=== PATIENT | female | born 1985 | race Caucasian/White ===

== ENCOUNTER 2022-07-04 16:27 | Emergency (ER) | payer OTHER, SELFPAY ==
[2022-07-04 17:14] VITALS: BP 139/91; PULSE 93; RESP 18; TEMP 37; O2SAT 100
[2022-07-04 18:53] LABS: Basophils Absolute Auto 0.1 K/mm3 (0.0-0.1); Basophils Percent Auto 0.4 % (0.2-1.2); Eosinophils Absolute Auto 0.1 K/mm3 (0-0.3); Eosinophils Percent Auto 1.1 % (0-4.4); Hematocrit 39.2 % (37.0-47.0); Hemoglobin 13.3 g/dL (12.0-15.0); Immature Granulocyte Absolute 0.04 K/mm3 (0.00-0.031); Immature Granulocyte Percent A 0.3 % (0-0.5); Lymphocytes Absolute Auto 2.41 K/mm3 (0.9-3.2); Lymphocytes Percent Auto 18.1 % (18.3-44.2); Mean Corpuscular HGB Conc 33.9 g/dl (32-36); Mean Corpuscular Hemoglobin 31.7 pg (26-34); Mean Corpuscular Volume 93.6 fl (80-100); Mean Platelet Volume 10.2 fl (7.4-10.4); Monocytes Absolute Auto 0.6 K/mm3 (0.1-0.6); Monocytes Percent Auto 4.4 % (2.6-8.5); Neutrophils Absolute Auto 10.1 K/mm3 (1.3-6.7); Neutrophils Percent Auto 75.7 % (45.5-73.1); Platelet Count Result 286 k/mm3 (150-375); Red Blood Count 4.19 M/mm3 (4.2-5.4); Red Cell Distribution Width 12.2 % (11.5-14.5); White Blood Count 13.3 K/mm3 (4.5-10.0)
[2022-07-04 18:55] LABS: Alanine Aminotransferase 24 U/L (6-35); Albumin Level 4.6 g/dL (3.5-5.1); Alkaline Phosphatase 64 U/L (38-126); Anion Gap 6 mmol/L (8-16); Aspartate Amino Transferase 24 U/L (14-36); Bilirubin,Total 0.7 mg/dL (0.2-1.3); Blood Urea Nitrogen 7 mg/dL (7-17); Calcium 8.8 mg/dL (8.4-10.2); Carbon Dioxide 26 mmol/L (22-30); Chloride 103 mmol/L (98-107); Estimated CRCL calculation 112 ml/min; Estimated Glomerular Filt Rate > 60; Glucose 89 mg/dL (65-110); Lipase 107 U/L (23-300); Potassium 3.6 mmol/L (3.4-5.0); Sodium 135 mmol/L (137-145)
--- NOTE | 2022-07-04 19:43 | PC.NURSE ---
states she is going to follow up with primary tomorrow morning for possible outpatient CT scan.
== END 2022-07-04 19:43 | disposition left against medical advice (07) ==
PROVIDERS: Emergency Provider Emergency Medicine; PCP Emergency Medicine
DX: R10.9 Unspecified abdominal pain (principal)
CPT/HCPCS: 36415; 80053; 83690; 85025; 99199

== ENCOUNTER 2024-02-26 15:04 | Outpatient (CLI) | payer OTHER, SELFPAY ==
--- NOTE | ~2024-02-26 | XR_ITS ---
EXAMINATION: XR chest 2V 02/26/2024 15:24 INDICATION: Cough PROCEDURE: 2 view chest COMPARISON: No prior studies for comparison. FINDINGS: The lungs are clear. The cardiomediastinal silhouette is within normal limits. There are no pleural effusions. There is no pneumothorax suspected. IMPRESSION: 1: NO ACUTE CARDIOPULMONARY DISEASE. Reviewed, dictated and finalized at location B.
[2024-02-26 15:49] LABS: Hematocrit 41.7 % (37.0-47.0); Hemoglobin 14.3 g/dL (12.0-15.0); Mean Corpuscular HGB Conc 34.3 g/dl (32-36); Mean Corpuscular Hemoglobin 32.1 pg (26-34); Mean Corpuscular Volume 93.5 fl (80-100); Mean Platelet Volume 9.8 fl (7.4-10.4); Platelet Count Result 287 k/mm3 (150-375); Red Blood Count 4.46 M/mm3 (4.2-5.4); Red Cell Distribution Width 12.5 % (11.5-14.5); White Blood Count 10.8 K/mm3 (4.5-10.0)
[2024-02-26 15:56] LABS: Add Urine Microscopic? YES; Appearance Urine Clear (Clear); Bacteria Urine Rare /hpf; Bilirubin Urine Negative (Negative); Blood Urine 1+ (Negative); Color Urine Yellow (Yellow); Glucose Urine UA Negative (Negative); Ketones Urine Negative (Negative); Leukocyte Esterase Ur Negative LEU/UL (Negative); Nitrate Urine Negative (Negative); Non Pathogenic Casts 0-2; Protein Urine Trace mg/dL (Negative); Specific Grav Ur 1.025 (1.001-1.035); Squamous Epithelial Cell Urine Occasional /hpf (Few); Urobilinogen Urine 0.2 mg/dL (<2.0); WBC Urine 0-5 /hpf (0-3)
[2024-02-26 16:20] LABS: Alanine Aminotransferase 39 U/L (6-35); Albumin Level 4.8 g/dL (3.5-5.1); Alkaline Phosphatase 87 U/L (38-126); Anion Gap 11 mmol/L (4-12); Aspartate Amino Transferase 46 U/L (14-36); Bilirubin,Total 1.1 mg/dL (0.2-1.3); Blood Urea Nitrogen 11 mg/dL (7-17); Calcium 9.3 mg/dL (8.4-10.2); Carbon Dioxide 23 mmol/L (22-30); Chloride 104 mmol/L (98-107); Cholesterol 230 mg/dL (0-200); Estimated Glomerular Filt Rate > 60; Glucose 98 mg/dL (65-110); HDL Direct 47 mg/dL; Potassium 3.8 mmol/L (3.4-5.0); Sodium 138 mmol/L (137-145); Triglycerides 232 mg/dL (<150)
[2024-02-26 16:24] LABS: Rheumatoid Factor < 12.0 IU/ML (<12)
[2024-02-26 16:26] LABS: Erythrocyte Sedimentation Rate 19 mm/hr (0-20)
[2024-02-26 16:26] LABS: Influenza A QL RT-PCR Negative (Negative); Influenza B QL RT-PCR Negative (Negative); RSV RNA, RT-PCR Negative (Negative); SARS-CoV-2 RNA PCR Negative (Negative)
[2024-02-26 16:31] LABS: LDL Cholesterol Direct 122 mg/dL
[2024-02-26 17:11] LABS: Free T4 Free Thyroxine 0.94 ng/mL (0.78-2.19); Vitamin D 25 Hydroxy 31.1 ng/mL
[2024-02-26 20:53] LABS: Hemoglobin A1C 5.3 % (<5.7)
== END 2024-02-26 15:05 | disposition home or self-care (01) ==
PROVIDERS: PCP Emergency Medicine; Visit Provider Emergency Medicine
DX: R05.9 Cough, unspecified (principal); R06.02 Shortness of breath; Z20.822 Contact with and (suspected) exposure to COVID-19
CPT/HCPCS: 36415; 71046; 80053; 80061; 81001; 82306; 83036; 84439; 84443; 85027; 85652; 86038; 86039; 86430; 87637

== ENCOUNTER 2024-03-18 12:57 | Outpatient (CLI) | payer OTHER, SELFPAY ==
--- NOTE | ~2024-03-18 | US_ITS ---
US axilla 03/18/2024 13:33 Indication: Arm pain Procedure: High-resolution ultrasound of the axilla bilaterally Comparison: No prior studies for comparison. Findings: Normal heterogeneous echotexture in the right axilla without discrete mass. In the left axi lla there is a superficial cyst measuring 8 x 5 x 4 mm, possibly a sebaceous cyst. No other masses ar e identified. No lymphadenopathy. Impression: 1: Superficial left axillary cyst measuring 8 mm, likely benign, possibly sebaceous cyst. Reviewed, dictated and finalized at location B. T METAL SMITH Impression: 1: Superficial left axillary cyst measuring 8 mm, likely benign, possibly sebac eous cyst.
== END 2024-03-18 12:58 | disposition home or self-care (01) ==
PROVIDERS: PCP Emergency Medicine; Visit Provider Surgery
DX: M79.621 Pain in right upper arm (principal); M79.622 Pain in left upper arm
CPT/HCPCS: 76882

== ENCOUNTER 2024-03-18 13:36 | Outpatient (CLI) | payer OTHER, SELFPAY ==
[2024-03-18 17:06] LABS: Hepatitis B Surface Antigen Negative (Negative)
[2024-03-18 17:12] LABS: HAV RESULT Negative (Negative); Hepatitis B Core IgM Result Negative (Negative)
[2024-03-18 17:23] LABS: Hepatitis C Virus Antibody Negative (Negative)
== END 2024-03-18 13:37 | disposition home or self-care (01) ==
LOC: ANHLAB 13:37
PROVIDERS: PCP Emergency Medicine; Visit Provider Emergency Medicine
DX: R94.5 Abnormal results of liver function studies (principal)
CPT/HCPCS: 36415; 80074

== ENCOUNTER 2024-03-24 13:32 | Outpatient (CLI) | payer OTHER, SELFPAY ==
--- NOTE | ~2024-03-24 | US_ITS ---
RIGHT UPPER QUADRANT ABDOMINAL ULTRASOUND (Doppler ultrasound interrogation techniques used as needed for this exam.) Ordering provider: Gonzalo Noble MD History: . ELEVATED LIVER ENZYMES . Comparison: None. FINDINGS: PANCREAS: Normal echotexture and size. PORTAL VEIN: Hepatopedal flow demonstrated. LIVER: Normal size. Mild fat infiltration. No focal hepatic lesions or perihepatic fluid collections are identified. BILIARY DUCTS: No intra or extrahepatic biliary dilation. Common bile duct measures mm in diameter wh ich is normal for patient's age. GALLBLADDER: Surgically removed. IVC: Normal. Aorta: Normal. FREE FLUID: None visualized within the upper abdomen. IMPRESSION: Mild fat infiltration. Otherwise, normal right upper quadrant ultrasound. Reviewed, dictated and finalized at location A. [employer]
== END 2024-03-24 13:33 | disposition home or self-care (01) ==
PROVIDERS: PCP Emergency Medicine; Visit Provider Emergency Medicine
DX: R74.8 Abnormal levels of other serum enzymes (principal)
CPT/HCPCS: 76705

== ENCOUNTER 2024-03-31 02:47 | Day surgery (SDC) | payer OTHER, SELFPAY ==
[2024-03-25 14:24] VITALS: BMI 31.8
--- NOTE | 2024-03-25 14:31 | PC.NURSE ---
Report to the Outpatient Waiting Room, entrance under the green pavilion located off [facility], at time _0730_ on date _[id number]_. Planned Procedure Time: 0830__.? Time changes happen often and if your time is changed the preop area will call you the afternoon before. - You and your visitor will be asked to self-screen and do not enter if you have any COVID symptoms. Please call surgeon if you need to reschedule. - A mask is optional within the hospital at this time. Ok for light breakfast. Take only the following medications with a SIP of water on the morning of surgery: __Ok morning medications DO NOT STOP ANY OF YOUR OTHER PRESCRIPTION MEDICATIONS PRIOR TO SURGERY EXCEPT THE FOLLOWING Medications to discontinue per physician ___None Please no make-up, nail tongan, hairspray, perfume, deodorant, or body powder the day of surgery.? No jewelry (including any body piercings) or valuables the day of surgery, leave them at home.? Please take a shower or bath the night before, or the morning of, surgery with an antibacterial soap.? Wear comfortable, loose fitting clothing.? - Jewelry must be removed prior to entering the operating room.? Rings and piercings that are not removed may be cut off. - The hospital will not accept responsibility for valuables.? - Please leave all valuables, including medications, at home the day of surgery. If you are going home after surgery, a licensed otr owner operator truck driver must drive you home.? - NO public transportation without another adult if you receive anesthesia. - We recommend that an adult stay with you for 24 hours following discharge. - We also recommend that you do not drive, make important decision, drink alcoholic beverages, or take any drugs that were not prescribed by your health care provider for at least 24 hours after your discharge time. Follow any additional instructions given to you from your surgeon. Telephone instructions given to _Isabella_and asked if any additional questions and then verbalized understanding. Patient advised to call surgeon office or pre surgery nurse liaison [phone] if any additional questions.
[2024-03-31] VITALS (8 sets, daily range): BP systolic 114–135; BP diastolic 66–83; PULSE 64–80; RESP 12–16; TEMP 36.4–36.7; O2SAT 97–100
[2024-03-31] MEDS: BUPIVACAINE/EPINEPHRINE 0.5% 50 ML VIAL 20 ML INFILTRATE (09:15)
--- NOTE | 2024-03-31 09:44 | SUR.OPER ---
Posterior neck skin cyst 6 mm, 4 cm long
--- NOTE | 2024-03-31 09:59 | W.PM.PROC2 ---
Procedure Note - Detailed Date of Procedure 03/31/24 Pre-op Diagnosis left axillary& post.neck skin cysts Post-op Diagnosis Same Procedure Performed Excision 0.8 cm skin cyst with 1 mm margins, 1 cm excision, left axilla, 4.5 cm layered closure. Excision 0.6 cm skin cyst of the posterior neck with 1 mm margins, 0.8 cm excision, 4 cm layered closure Surgeon Felix Messina MD Anesthesia Local (0.5% Marcaine with epinephrine) Indications Patient has 2 small skin cysts with star bothersome for her, 1 is in the anterior left axillary area, the other is in the posterior neck. She is taken to surgery now for excision. Findings Skin cysts as above Description of Procedure Patient was taken to surgery and placed in supine position with the left arm extended 90?. The left anterior axillary cyst area was prepped and draped. Local anesthetic was infiltrated. An ellipse of skin including the cyst and 1 mm margins was excised. The cyst was measured with findings as above. The length of the wound was measured. Hemostasis was achieved with the cautery. The wound was closed with subcuticular and subcutaneous 4-0 Vicryl suture. The skin was closed with running 4-0 Monocryl skin suture. Wound was dressed with Exofin surgical adhesive. Once this was dried, drapes were removed and the patient turned over into a prone position with the neck somewhat flexed. The area of the cyst had been previously marked. This area on the posterior neck was then prepped and draped. An ellipse was drawn around the cyst in a transverse orientation. Local anesthetic was infiltrated into the skin and subcutaneous. The ellipse including the skin cyst was excised taking a 1 mm margin with the excision. The size of the cyst was measured. The size of the resultant wound was measured. This wound was also closed with subcutaneous and subcuticular interrupted 4-0 Vicryl suture. Final suture was a running 4-0 Monocryl skin suture. This wound was also dressed with Exofin surgical adhesive. Patient then was able to get off the operating table and transfer back to same-day surgery in a wheelchair. Sponge and needle counts were correct x2. Estimated Blood Loss -5 Drains No Packing No Pathology Yes (Skin cysts as above) Complications None Condition Stable Disposition Same day [facility] Billing Surgery - Charge Forward: Surgery Billing (Excision left axillary 0.8 cm skin cyst with 1 mm margins, 1 cm excision, 4.5 cm layered closure. Excision 0.6 cm skin cyst of the neck with 1 mm margins, 0.8 cm excision, 4 cm layered closure)
--- NOTE | 2024-04-01 12:09 | WPDHPUPDATE1 ---
History and Physical Update Update Date/Time: 04/01/24 12:09 History and Physical has been reviewed, including an updated exam of the patient. There are NO changes in the patient's condition. Risks, benefits, and alternatives have been discussed and questions answered. Patient agrees to proceed with procedure.
== END 2024-03-31 10:15 | disposition home or self-care (01) ==
PROVIDERS: PCP Emergency Medicine; Visit Provider Surgery
PROC: (CPT 11401; principal; 2024-03-31 08:30)
DX: L72.0 Epidermal cyst (principal)
CPT/HCPCS: 11401; 12032; 11421; 12042; 88305

== ENCOUNTER 2024-06-21 12:20 | Emergency (ER) | payer OTHER, SELFPAY ==
[2024-06-21 12:29] VITALS: BP 136/83; PULSE 102; RESP 16; TEMP 37.8; O2SAT 100
--- NOTE | 2024-06-21 13:07 | ED_ITS ---
HPI - URI/Sore Throat General Chief Complaint: Upper Respiratory Infection Stated Complaint: Cough/Sinus Time Seen by Provider: 06/21/24 13:07 Source: patient, RN notes reviewed and old records reviewed Mode of arrival: ambulatory Limitations: no limitations History of Present Illness HPI Narrative: 38-year-old female presents to the [facility] with complaints of cough and sinus congestion that started 3 days ago. Denies sore throat. Has been taking Motrin and Tylenol. Onset (ago): day(s) (3) Related Data Home Medications ?Medication ?Instructions ?Recorded ?Confirmed ?Last Taken ?Type lamotrigine 150 mg tablet 150 mg PO HS 03/25/24 03/31/24 03/30/24 20:00 History varenicline tartrate 1 mg tablet 1 mg PO BID 03/25/24 03/31/24 03/30/24 20:00 History Allergies Allergy/AdvReac Type Severity Reaction Status Date / Time No Known Allergies Allergy Verified 03/31/24 08:06 Review of Systems Review of Systems: All systems reviewed & are unremarkable except as noted in HPI and below Constitutional: Constitutional: Reports as per HPI, Reports chills, Reports fatigue and Reports fever(s) ENT: Reports system reviewed and no additional complaints, except as documented Cardiovascular: Cardiovascular: Reports no additional cardiovascular complaints, Denies chest pain and Denies dyspnea Respiratory: Respiratory: Reports as per HPI, Denies chest congestion, Reports cough and Denies dyspnea Musculoskeletal: Musculoskeletal: Reports no additional musculoskeletal complaints Integumentary/Breasts: Skin/Breast: Reports system reviewed and no additional complaints, except as docu PMFSH Past Medical History Medical History History of cervical cancer History of brain cancer Asthma IBS (irritable bowel syndrome) Migraine GERD (gastroesophageal reflux disease) Allergies Anxiety Surgical History Surgical History Hx of cholecystectomy H/O: hysterectomy H/O craniotomy Family History Family History Other Alcoholism Anxiety Asthma Depression Diabetes mellitus Social History Social History Years smoked: 26 Smoking status: Current every day smoker Tobacco type: cigarettes Alcohol intake: current Drinks per week: 3 Substance use: never Substance use type: does not use Do You Feel Safe in your Home?: Yes Lack of Transportation: No Lack of Food: Never True Current Housing: I Have Housing Concerned About Future Housing: No Difficulty Paying Gas/Electric Bills: No Difficulty Paying for Meds: No Currently Unemployed: No Education: High School Diploma/GED Difficulty w/ Childcare or Family Care: No Living arrangements: with family Spiritual care concerns: No Comments At the time of my signature, I reviewed and agree with the nursing past medical, surgical, social, and family history. There is no relevant family history pertinent to the patient complaint. Exam Const: General: cooperative, no acute distress, well developed, alert, tired appearing, uncomfortable and well nourished Nutritional Appearance: well nourished Orientation/consciousness: patient oriented x3 Limitations: no limitations HENMT: Head: normal to inspection Ears: hearing grossly normal bilaterally, external ears normal, TM's normal bilaterally, EAC's normal, mastoids normal and no periauricular adenopathy Mouth: Yes Normal oral and palatal mucosa present, Yes lip normal, Yes tongue normal and Yes moist mucous membranes Throat: posterior oropharynx normal, uvula midline and no uvular edema Eyes: General: appearance normal, both eyes and all related structures Alignment and Position: alignment normal Neck: Neck: normal visual inspection, full ROM, no lymphadenopathy and no meningeal signs Chest: Chest palpation & inspection: normal inspection of the chest Resp: Effort & Inspection: normal respiratory effort and able to speak in complete sentences Auscultation: clear to auscultation bilaterally, no crackles, no rales, no rhonchi and no wheezes Cardio: Rate: regular rate Skin: General skin exam: normal color and no rashes or lesions noted Neuro: General: patient oriented x3, gait normal, moves all extremities and no meningeal signs Cognition (Neuro): normal cognition Speech: normal speech Gait exam (Neuro): Normal gait present Extrem: General: normal to inspection, full ROM, capillary refill normal and normal gait Psych: Appearance: grossly normal and well kempt Mental Status: mental status grossly normal Speech and movement: Normal speech and movement present and Clear speech present Affect: normal affect Attitude: cooperative Course Course Level of Care: Express Care Visit Vital Signs Vital signs: Vital Signs Temperature 100.0 F H 06/21/24 12:29 Pulse Rate 102 H 06/21/24 12:29 Respiratory Rate 16 06/21/24 12:29 Blood Pressure 136/83 06/21/24 12:29 Pulse Oximetry 100 06/21/24 12:29 Oxygen Delivery Room Air 06/21/24 12:29 Temperature 100.0 F H 06/21/24 12:29 Pulse Rate 102 H 06/21/24 12:29 Respiratory Rate 16 06/21/24 12:29 Blood Pressure 136/83 06/21/24 12:29 Pulse Oximetry 100 06/21/24 12:29 Oxygen Delivery Room Air 06/21/24 12:29 Reviewed MDM - URI/Sore Throat MDM Narrative Medical decision making narrative: Patient sitting exam. Nontoxic, vitals stable. Patient in acute distress. Patient presents with 3 day history of cough. Has had nausea and vomiting approximately 2 weeks which has improved. Patient flu A positive Patient appropriate for outpatient treatment and follow-up Discharge instructions reviewed with patient, as well as provided in writing per nursing staff. The instructions also include specific and strict return/GO TO THE ER as well as f/u information. All questions have been answered, and the patient deny any further questions with discharge and discharge plan. Some parts of this dictation were generated by voice recognition software and may contain typographical and/or grammatical inaccuracies. Differential Diagnosis Differential diagnosis: Likely upper respiratory infection, otitis media, sinusitis, viral infection, influenza and pharyngitis Lab Data Labs: Lab Results 06/21/24 Range/Units 12:48 POC Influenza A Ag Positive (Negative) POC Influenza B Ag Negative (Negative) POC SARS CoV-2 Ag Negative (Negative) Reviewed Critical Care Time Critical Care Time Critical Care Time: No Discharge Plan Discharge Clinical Impression: Influenza A Patient Disposition: Home, Self-Care Condition: Stable Instructions: Antibiotic Form, Influenza (ED) Additional Instructions: Your rapid COVID test were negative Your rapid flu test was positive for influenza A Your symptoms are due to a viral illness, which is not treated with antibiotics. Typically viral infections last 7-10 days, can linger for couple of weeks. It is very important to treat your symptoms. Drink plenty of water, Gatorade, Pedialyte, ice pops or Jell-O. -Alternate Tylenol and Motrin per package directions for fever or pain. You can alternate every 4 hours -Antihistamine medication such as Zyrtec/Claritin/Rosette during the day can help improve symptoms. -doing daily nasal irrigations can help relieve pressure your sinuses. Things like a Neti pot -Use Flonase twice a day for 5 days then daily to help reduce the inflammation and dry up your sinuses. -You can also use Mucinex. Be sure to drink plenty of water with this medication at least 8 ounces with every dose and it is important to drink 8 to 10 glasses of water per day. Water is a natural decongestant -Eat and drink things that are easy to swallow, like tea or soup, or popsicles. -Oral rinses such as: Salt water gargles and/or may use topical anesthetic (eg. Chloraseptic spray) or lozenges to relieve dryness or throat pain). -Frequent hand washing or hand network and threat support specialist is one of the best ways to prevent spread of infection. -Using a vaporizer or humidifier at night will also help thin secretions and help with coughing up phlegm. -Follow up with primary care provider in 7-10 days if condition is not improving - For new or worsening symptoms go directly to the nearest ER Patient Language: Malay Prescriptions: No Action lamotrigine 150 mg tablet 150 mg PO HS varenicline tartrate 1 mg tablet 1 mg PO BID tramadol 50 mg tablet 50 mg PO Q6H PRN (Reason: pain) Qty: 10 0RF Follow-up/Referrals: Gonzalo Noble MD [Primary Care Provider] - 1 Week ([facility] follow-up) Stand Alone Forms: Work/School Release IP Time of Disposition: 13:19
[2024-06-21 13:09] LABS: EDCOVIDSCREEN Negative (Negative); EDINFLUASCREEN Positive (Negative); EDINFLUBSCREEN Negative (Negative)
== END 2024-06-21 13:33 | disposition home or self-care (01) ==
PROVIDERS: Emergency Provider Nurse Practitioner; PCP Emergency Medicine
DX: J10.1 Influenza due to other identified influenza virus with other respiratory manifestations (principal); Z85.41 Personal history of malignant neoplasm of cervix uteri; Z85.841 Personal history of malignant neoplasm of brain; J45.909 Unspecified asthma, uncomplicated; K21.9 Gastro-esophageal reflux disease without esophagitis; F17.210 Nicotine dependence, cigarettes, uncomplicated; Z20.822 Contact with and (suspected) exposure to COVID-19
CPT/HCPCS: 87426; 87804; 99212; G0463

== ENCOUNTER 2024-07-26 15:25 | Emergency (ER) | payer OTHER, SELFPAY ==
--- NOTE | 2024-07-26 15:32 | ED_ITS ---
HPI - Skin/Abscess/Foreign Bdy General Chief complaint: Skin/Abscess/Foreign Body Stated complaint: infected cyst on chest Time Seen by Provider: 07/26/24 15:30 Source: patient Mode of arrival: ambulatory Limitations: no limitations History of Present Illness HPI narrative: Patient is a 38-year-old female that presents with redness and tenderness to cyst on chest. Patient states it has always been there but a small BB size area. Now it has surrounding erythema, tenderness and slight swelling. Denies any fever, chills, n/v/d/ No open areas or drainage. Related Data Home Medications ?Medication ?Instructions ?Recorded ?Confirmed ?Last Taken ?Type lamotrigine 150 mg tablet 150 mg PO HS 03/25/24 03/31/24 03/30/24 20:00 History Allergies Allergy/AdvReac Type Severity Reaction Status Date / Time No Known Allergies Allergy Verified 07/26/24 15:32 Review of Systems 2 Review of Systems: All systems reviewed & are unremarkable except as noted in HPI and below Constitutional: Constitutional: Denies body ache(s), Denies chills, Denies fatigue, Denies fever(s), Denies headache(s), Denies malaise and Denies weakness Eyes: Eyes: Denies blurry vision, Denies irritation and Denies loss of vision ENT: Denies otalgia, Denies headache(s), Denies nasal discharge, Denies sinus pain and Denies sore throat Cardiovascular: Cardiovascular: Denies chest pain, Denies irregular heart rhythm and Denies dyspnea Respiratory: Respiratory: Denies dyspnea Gastrointestinal: Gastrointestinal: Denies abdominal pain, Denies melena, Denies hematochezia, Denies diarrhea, Denies nausea and Denies vomiting Musculoskeletal: Musculoskeletal: Denies back pain, Denies myalgias and Denies arthralgias Integumentary/Breasts: Skin/Breast: Denies pruritus, Reports erythema, Denies rash and Reports skin swelling Neurologic: Denies headache(s), Denies loss of vision and Denies weakness Psychiatric: Psychiatric: Reports no additional psychiatric complaints Endocrine: Endocrine: Denies fatigue PMFSH Past Medical History Medical History History of cervical cancer History of brain cancer Asthma IBS (irritable bowel syndrome) Migraine GERD (gastroesophageal reflux disease) Allergies Anxiety Surgical History Surgical History Hx of cholecystectomy H/O: hysterectomy H/O craniotomy Family History Family History Other Alcoholism Anxiety Asthma Depression Diabetes mellitus Social History Social History Years smoked: 26 Smoking status: Current every day smoker Tobacco type: cigarettes Alcohol intake: current Drinks per week: 3 Substance use: never Substance use type: does not use Do You Feel Safe in your Home?: Yes Lack of Transportation: No Lack of Food: Never True Current Housing: I Have Housing Concerned About Future Housing: No Difficulty Paying Gas/Electric Bills: No Difficulty Paying for Meds: No Currently Unemployed: No Education: High School Diploma/GED Difficulty w/ Childcare or Family Care: No Living arrangements: with family Spiritual care concerns: No Comments At time of signature, agree with nursing past medical, surgical, social and family history. There is no relevant family history pertinent to the presenting complaint. Exam 2 Const: General: cooperative, healthy appearing, comfortable, no acute distress and well nourished Nutritional Appearance: well nourished O rientation/consciousness: patient oriented x3 Limitations: no limitations HENMT: Head: normal to inspection, normocephalic and atraumatic Ears: h earing grossly normal bilaterally and external ears normal Face/Nose/Sinus: N ormal external nose present, normal facial exam and face symmetric Face and sinus: normal facial exam and face symmetric Mouth: Yes lip normal Eyes: General: appearance normal, both eyes and all related structures A lignment and Position: alignment normal and position normal Periorbital: p eriorbital findings normal Eyelids: eyelids normal Pupils: Equal, round and reactive pupils present EOM: EOMs intact bilaterally Neck: Neck: normal visual inspection, full ROM and supple Chest: Chest palpation & inspection: normal inspection of the chest Resp: Effort & Inspection: normal respiratory effort and able to speak in complete sentences Auscultation: clear to auscultation bilaterally Cardio: Rate: regular rate Rhythm: regular rhythm Heart sounds: S1 normal heart sound present and S2 normal heart sound present GI: Inspection: normal to inspection Skin: General skin exam: normal color and no rashes or lesions noted Full body images: 1. 1.5 cm circular area of erythema and induration. TTP. No active drainage. Neuro: General: patient oriented x3 and moves all extremities Cranial nerves: Yes Equal, round and reactive pupils present Speech: normal speech Gait exam (Neuro): Normal gait present Extrem: General: normal to inspection, full ROM and no edema Psych: Appearance: grossly normal and well kempt Mental Status: mental status grossly normal Speech and movement: Normal speech and movement present Affect: normal affect Attitude: cooperative Thought process: Normal thought process present Course Course Emergency Course: Patient is aware of diagnosis, understands and agrees to treatment plan. Anticipatory guidance given. Patient agrees to follow-up as directed and is aware of reasons to seek care at the emergency department. Portions of this record may have been created with voice recognition software Level of Care: Express Care Visit Vital Signs Vital signs: Vital Signs Temperature 36.7 C 07/26/24 15:34 Pulse Rate 85 07/26/24 15:34 Respiratory Rate 16 07/26/24 15:34 Blood Pressure 128/83 07/26/24 15:34 Pulse Oximetry 100 07/26/24 15:34 Oxygen Delivery Room Air 07/26/24 15:34 Temperature 36.7 C 07/26/24 15:34 Pulse Rate 85 07/26/24 15:34 Respiratory Rate 16 07/26/24 15:34 Blood Pressure 128/83 07/26/24 15:34 Pulse Oximetry 100 07/26/24 15:34 Oxygen Delivery Room Air 07/26/24 15:34 Reviewed MDM - Skin/Abscess/Foreign Bdy MDM Narrative Medical decision making narrative: Discussed if redness starts spreading and streaking lines, area becomes more fluctuant or starts having fever, chills, nausea, vomiting go to the emergency department. Pt well hydrated appearing, in no respiratory distress, hemodynamically stable. Recommend supportive care. The patient is stable at time of discharge the clinical impression was discussed and the patient was given the opportunity to ask questions, which were addressed as completely as possible given the information available at present. Anticipatory guidance and return to care precautions were discussed and the importance of primary care follow-up was stressed and encouraged. The patient voiced understanding of the plan, indications to return, and the need for follow-up. Exam findings show no acute concerns or changes Patient is appropriate for outpatient treatment and follow-up. Differential Diagnosis Differential diagnosis: Likely abscess of skin or subcutaneous tissue, cellulitis, insect bites and contact dermatitis Medical Records Attestation: I reviewed the patient's medical records. Discharge Plan Discharge Clinical Impression: Cellulitis Qualifiers: Site of cellulitis: trunk Site of cellulitis of trunk: chest wall Qualified Code(s): L03.313 - Cellulitis of chest wall Patient Disposition: Home, Self-Care Condition: Stable Instructions: Cellulitis (ED) Additional Instructions: Please follow up with your Primary Care Doctor within 48-72 hours - call for an appointment. Rest and elevate affected area; apply moist heat 3-4 times daily for 10-15 minutes. Take Motrin 600mg every 8 hours with food for pain. Please take Antibiotics as directed. If you experience any worsening redness, swelling, streaking (red lines), fever or chills please go to the ER Patient Language: Yi Prescriptions: New clindamycin HCl 300 mg capsule 300 mg PO Q8H 7 Days Qty: 21 0RF sulfamethoxazole-trimethoprim 800-160 mg tablet 1 tablet PO Q12H 7 Days Qty: 14 0RF fluconazole 150 mg tablet 150 mg PO ONCE Qty: 2 0RF Rx Instructions: as a single dose after antibiotics are complete. If symptoms persist, take second dose 3 days later. No Action lamotrigine 150 mg tablet 150 mg PO HS Follow-up/Referrals: Gonzalo Noble MD [Primary Care Provider] - 3 Days Stand Alone Forms: Work/School Release IP Time of Disposition: 16:29
[2024-07-26 15:34] VITALS: BP 128/83; PULSE 85; RESP 16; TEMP 36.7; O2SAT 100
== END 2024-07-26 16:31 | disposition home or self-care (01) ==
PROVIDERS: Emergency Provider Nurse Practitioner Family; PCP Emergency Medicine
DX: L03.313 Cellulitis of chest wall (principal); F17.210 Nicotine dependence, cigarettes, uncomplicated; J45.909 Unspecified asthma, uncomplicated; K21.9 Gastro-esophageal reflux disease without esophagitis; K58.9 Irritable bowel syndrome, unspecified; Z85.41 Personal history of malignant neoplasm of cervix uteri; Z85.841 Personal history of malignant neoplasm of brain
CPT/HCPCS: 99213; G0463